=== PATIENT | female | born 1970 | race Caucasian/White ===

== ENCOUNTER 2021-10-08 06:39 | Emergency (ER) | payer SELFPAY ==
[2021-10-08] MEDS ORDERED: NA CHLORIDE 0.9% 1,000 ML ONE (08:03)
[2021-10-08] MEDS ORDERED: ONDANSETRON 4 MG/2 ML VIAL ONE (08:03)
[2021-10-08] MEDS ORDERED: MORPHINE 4 MG/ML SYR ONE (08:03)
[2021-10-08 08:18] LABS: Urine Blood 3+ (Negative); Urine Glucose Negative (Negative); Urine Protein 3+ (Negative); Urine Specific Gravity 1.025 (1.005-1.030); Urine pH 5.5 (5.0-7.0)
[2021-10-08 08:23] LABS: Absolute Lymphocytes (CBC) 1.2 K/uL (0.7-4.9); Hematocrit 26.3 % (36.0-45.0); Lymphocytes % 6.9 % (15.3-44.8); MPV 7.9 fL (7.6-11.3); RBC Red Blood Cell Count 3.89 M/uL (3.86-4.86)
[2021-10-08 08:29] LABS: Urine Bacteria 20-50 /HPF (<20); Urine Mucus LIGHT /HPF (NONE SEEN)
[2021-10-08 08:34] LABS: Urine Specific Gravity/Preg 1.025 (1.005-1.030)
[2021-10-08 08:39] LABS: Albumin 2.8 g/dL (3.4-5.0); Bilirubin Direct 0.2 mg/dL (0-0.2); Bilirubin Total 0.6 mg/dL (0.2-1.0); Potassium 3.6 mmol/L (3.5-5.1); Protein, Total 7.8 g/dL (6.4-8.2)
--- NOTE | 2021-10-08 09:14 | RAD REPORT ---
EXAM DESCRIPTION: CT - Stone Protocol - 10/08/2021 8:33 am CLINICAL HISTORY: Flank pain. LLQ abd pain COMPARISON: No comparisons TECHNIQUE: Axial images were obtained without oral or IV contrast. Lack of contrast limits solid org an and vascular assessment. The [id number] spans the entirety of the system partially obscuring uppermost abdomen and lung bases. Coronal reformatted images were obtained and reviewed. All CT scans are performed using dose optimization technique as appropriate and may include automated exposure control or mA/KV adjustment according to patient size. FINDINGS: The lower lung chambers are clear. Imaged portions of the liver and spleen show no suspicious findings on non-contrast imaging. The panc reas and adrenal glands are normal. No pathologic lymphadenopathy in the abdomen or pelvis. No urinary tract stones or obstructive uropathy. Slight inflammatory changes are present in the right upper quadrant hepatic flexure of the colon. Thi s portion of the colon demonstrates change in luminal diameter as well (image 77/165). There are didier ral mildly prominent adjacent lymph nodes also evident. Direct visualization of this region of the co girish would be recommended. No free fluid, free air or bowel obstruction. 6.3 x 5.3 cm less pelvic mass is present. This appears somewhat contiguous with the uterus a could be an exophytic fibroid. IMPRESSION: No urinary tract stones or obstructive uropathy. Abnormal appearance in the hepatic flexure of the colon as detailed concerning for a colonic mass. Fo llowup colonoscopy is recommended. 6 cm left pelvic mass noted appearing somewhat contiguous with the uterus and may represent an enlarg ed exophytic fibroid. Follow-up pelvic ultrasound or MRI would be helpful for further evaluation.
[2021-10-08 09:41] LABS: SARS-COV-2 RT PCR POSITIVE (NEGATIVE)
--- NOTE | 2021-10-08 10:38 | RAD REPORT ---
EXAM DESCRIPTION: US - Pelvis Complete - 10/08/2021 10:03 am CLINICAL HISTORY: further eval for fibroid;Abd pain Pelvic pain. COMPARISON: Transvaginal Study Probe dated 10/08/2021 FINDINGS: Transabdominal and transvaginal pelvic sonography was performed. The uterus measures 11.6 x 8.6 x 6.5 cm. Endometrium measures 12 mm, normal. Left adnexal mass has a heterogenous appearance measuring 5.0 x 5.0 cm. There appears to be a tissue connection with the uterus and this lesion which would favor exophytic fibroid. Both ovaries are normal in size. Normal Doppler blood flow was demonstrated to both ovaries. No significant pelvic ascites. IMPRESSION: 5 cm left adnexal mass is favored to represent an exophytic fibroid. Recommend follow-up nonemergent MRI female pelvis protocol for confirmation. No ovarian torsion seen.
[2021-10-08 10:47] LABS: Anisocytosis SLIGHT; Blood Morphology Comment NOTED (NOT SEEN); Hypochromasia 1+; Platelet Estimate ADEQ; White Blood Cell Scan OK (OK)
--- NOTE | 2021-10-08 11:49 | ER ---
Nurse's Notes [facility] Name: Cindy Hester Age: 50 yrs Sex: Female : 1970 Arrival Date: 10/08/2021 Time: 06:48 Bed 18 Private MD: Diagnosis: Infectious gastroenteritis and colitis, unspecified;Uterine fibroid;Anemia, unspecified;SARS-associated coronavirus as the cause of diseases classified elsewhere Presentation: 10/08 07:29 Chief complaint: Patient states: Abd pain/pelvic pain since Thursday night at 11 pm. ll1 Still has vaginal bleeding with slimy discharge for about 3 days with foul odor. Coronavirus screen: Vaccine status: Patient reports being unvaccinated. Client denies travel out of the [place] in the last 14 days. diarrhea, nausea, vomiting. Client presents with at least one sign or symptom that may indicate coronavirus-19. Standard/surgical mask placed on the client. Ebola Screen: Patient denies travel to an Ebola-affected area in the 21 days before illness onset. Initial Sepsis Screen: Does the patient meet any 2 criteria? HR > 90 bpm. No. Patient's initial sepsis screen is negative. Does the patient have a suspected source of infection? Yes: Acute abdominal pain. Risk Assessment: Do you want to hurt yourself or someone else? Patient reports no desire to harm self or others. Onset of symptoms was October 07, 2021. 07:29 Method Of Arrival: Wheelchair ll1 07:29 Acuity: KANCHAN 3 ll1 Triage Assessment: 08:43 General: Appears in no apparent distress. Behavior is calm, cooperative. 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 - Social history:: Smoking status: Patient denies any tobacco usage or history of. - Family history:: not pertinent. - Hospitalizations: : No recent hospitalization is reported. Screenin:35 Abuse screen: Denies threats or abuse. Denies injuries from another. Nutritional [place] screening: No deficits noted. Tuberculosis screening: No symptoms or risk factors identified. Fall Risk IV access (20 points). Assessment: 08:35 Pain: Complains of pain in abdomen. GI: Bowel sounds present X 4 quads. Abd is soft Abd [place] is non tender X 4 quads. Vital Signs: 07:29 BP 104 / 68; Pulse 130; Resp 18; Temp 99.56; Pulse Ox 100% ; Weight 114.31 kg; Height 5 ll1 ft. 2 in. (157.48 cm); Pain 10/10; 10:14 BP 131 / 88; Pulse 97; Resp 18; Pulse Ox 99% on R/A; [place] 11:12 BP 122 / 61; Pulse 75; Resp 18; Pulse Ox 98% on R/A; [place] 07:29 Body Mass Index 46.09 (114.31 kg, 157.48 cm) ll1 ED Course: 06:48 Patient arrived in ED. wm 07:29 Arm band placed on. ll1 07:32 Triage completed. ll1 07:48 Olman Pineda MD is Attending Physician. rn 08:33 CT Stone Protocol In Process Unspecified. EDMS 08:35 Patient has correct armband on for positive identification. Bed in low position. [place] 08:35 No provider procedures requiring assistance completed. Inserted saline lock: 20 gauge [place] in right antecubital area, using aseptic technique. 10:03 US Pelvis Complete In Process Unspecified. EDMS 10:03 Transvaginal Study Probe In Process Unspecified. EDMS 11:48 Johnny Hamilton MD is Referral Physician. rn Administered Medications: 08:19 Drug: morphine 4 mg Route: IVP; Site: right antecubital; [place] 08:20 Follow up: Response: No adverse reaction [place] 08:19 Drug: Zofran (Ondansetron) 4 mg Route: IVP; Site: right antecubital; [place] 08:20 Follow up: Response: No adverse reaction [place] 08:19 Drug: NS 0.9% 1000 ml Route: IV; Rate: 1000 ml; Site: right antecubital; [place] Point of Care Testing: Guaiac: 10:28 Stool Guaiac: Negative; Stool Hemoccult Control: Pass; rn Outcome: 11:48 Discharge ordered by . rn 13:27 Patient left the ED. ss Signatures: Dispatcher [employer] EDMS Olman Pineda MD MD rn Smirch, Shelby, RN RN ss Lewis, Lynsay, RN RN [facility] Ashley You Sherrie Barrett RN RN [place]
--- NOTE | 2021-10-08 11:49 | EDPHYS ---
Physician Documentation [facility] Name: Cindy Hester Age: 50 yrs Sex: Female : 1970 Arrival Date: 10/08/2021 Time: 06:48 Bed 18 Private MD: ED Physician Olman Pineda HPI: 10/08 08:10 This 50 yrs old Female presents to ER via Wheelchair with complaints of Abdominal Pain, rn Pelvic Pain. 08:11 The patient presents with abdominal pain in the lower abdomen, in the left lower rn quadrant. Onset: The symptoms/episode began/occurred last night. The symptoms do not radiate. Associated signs and symptoms: Pertinent positives: hematuria, nausea, Pertinent negatives: blood in stools, fever, vaginal discharge. The symptoms are described as intermittent, sharp. Modifying factors: The symptoms are alleviated by nothing, the symptoms are aggravated by movement, touching the area. Severity of pain: At its worst the pain was moderate in the emergency department the pain is unchanged. The patient has experienced similar episodes in the past. The patient has not recently seen a physician. Patient reports lower abdominal pain that began last night, sharp and intermittent, associated with possibly either vaginal bleeding or hematuria patient does not note. States only present when she urinates but cannot tell if it is coming from her vagina. Does have a history of kidney stones. Associated with nausea and vomiting. No fever.. 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 - Social history:: Smoking status: Patient denies any tobacco usage or history of. - Family history:: not pertinent. - Hospitalizations: : No recent hospitalization is reported. ROS: 08:12 Constitutional: Negative for fever, chills, and weight loss, Eyes: Negative for injury, rn pain, redness, and discharge, ENT: Negative for injury, pain, and discharge, Neck: Negative for injury, pain, and swelling, Cardiovascular: Negative for chest pain, palpitations, and edema, Respiratory: Negative for shortness of breath, cough, wheezing, and pleuritic chest pain, Abdomen/GI: + abd pain/nausea/vomiting Back: Negative for injury and pain, : + hematuria MS/Extremity: Negative for injury and deformity, Skin: Negative for injury, rash, and discoloration, Neuro: Negative for headache, weakness, numbness, tingling, and seizure. 08:12 All other systems are negative. Exam: 08:12 Constitutional: This is a well developed, well nourished patient who is awake, alert, rn and in no acute distress. Head/Face: Normocephalic, atraumatic. Eyes: Periorbital areas with no swelling, redness, or edema. Cardiovascular: Tachycardic, regular. No pulse deficits Respiratory: No increased work of breathing, no retractions or nasal flaring. Abdomen/GI: Soft, mild tenderness suprapubic and left lower quadrant without masses or peritoneal signs Skin: Warm, dry MS/ Extremity: Pulses equal, no cyanosis. Neuro: Awake and alert, GCS 15 Vital Signs: 07:29 BP 104 / 68; Pulse 130; Resp 18; Temp 99.56; Pulse Ox 100% ; Weight 114.31 kg; Height 5 ll1 ft. 2 in. (157.48 cm); Pain 10/10; 10:14 BP 131 / 88; Pulse 97; Resp 18; Pulse Ox 99% on R/A; [place] 11:12 BP 122 / 61; Pulse 75; Resp 18; Pulse Ox 98% on R/A; [place] 07:29 Body Mass Index 46.09 (114.31 kg, 157.48 cm) ll1 MDM: 07:48 Patient medically screened. rn 10:28 ED course: Hemoccult negative. Patient states has had chronic anemia and has never rn needed blood transfusion. Does not take iron supplementation. States very heavy periods.. 11:46 Differential diagnosis: appendicitis, diverticulitis, Endometriosis, gastroesophageal rn reflux disease, non-specific abd pain, Peptic Ulcer Disease, Ureterolithiasis, urinary tract infection, colitis, COVID. Data reviewed: vital signs, nurses notes, lab test result(s), radiologic studies, CT scan, and as a result, I will discharge patient. Counseling: I had a detailed discussion with the patient and/or guardian regarding: the historical points, exam findings, and any diagnostic results supporting the discharge/admit diagnosis, lab results, radiology results, the need for outpatient follow up, to return to the emergency department if symptoms worsen or persist or if there are any questions or concerns that arise at home. Response to treatment: the patient's symptoms have markedly improved after treatment, and as a result, I will discharge patient. Special discussion: Based on the patient's Hx, exam, and Dx evaluation, there is no indication for emergent surgery or inpatient Tx. It is understood by the patient/guardian that if the Sx's persist or worsen they need to return immediately for re-evaluation. I discussed with the patient/guardian in detail that at this point there is no indication for admission to the hospital. It is understood, however, that if the symptoms persist or worsen the patient needs to return immediately for re-evaluation. Based on the history and exam findings, there is no indication for further emergent testing or inpatient evaluation. I discussed with the patient/guardian the need to see the fuse coiler for further evaluation of the symptoms. ED course: CT shows irregular focal inflammatory changes in the hepatic flexure. No other acute findings. Patient with anemia but patient with chronic anemia and fibroid on ultrasound. Patient states bleeding seems to be improving. COVID positive. Will discharge home with a GI follow-up after a round of antibiotics for colonoscopy and explained this to patient. 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 Also recommend iron supplementation for now.. 10/08 07:58 Order name: Basic Metabolic Panel; Complete Time: 08:47 rn 10/08 07:58 Order name: CBC with Diff; Complete Time: 11:06 rn 10/08 07:58 Order name: Hepatic Function; Complete Time: 08:47 rn 10/08 07:58 Order name: Lipase; Complete Time: 08:47 rn 10/08 07:58 Order name: Urine Microscopic Only; Complete Time: 08:47 rn 10/08 08:12 Order name: COVID-19/FLU A+B (Document "Date of Onset" if Symptomatic); Complete Time: rn 09:47 10/08 07:58 Order name: CT Stone Protocol; Complete Time: 09:15 rn 10/08 08:18 Order name: Urine --Ancillary (enter results); Complete Time: 08:47 bd 10/08 08:19 Order name: Urine Dipstick-Ancillary; Complete Time: 08:47 EDMS 10/08 08:31 Order name: Urine Culture EDCT 10/08 09:17 Order name: US Pelvis Complete; Complete Time: 11:06 rn 10/08 10:03 Order name: Transvaginal Study Probe EDCT 10/08 10:47 Order name: CBC Smear Scan; Complete Time: 11:06 EDMS 10/08 07:58 Order name: IV Saline Lock; Complete Time: 08:19 rn 10/08 07:58 Order name: Labs collected and sent; Complete Time: 08:20 rn 10/08 07:58 Order name: Urine Dipstick-Ancillary (obtain specimen); Complete Time: 08:19 rn 10/08 07:58 Order name: Urine Test (obtain specimen); Complete Time: 08:19 rn 10/08 07:58 Order name: NPO; Complete Time: 08:19 rn Administered Medications: 08:19 Drug: morphine 4 mg Route: IVP; Site: right antecubital; [place] 08:20 Follow up: Response: No adverse reaction [place] 08:19 Drug: Zofran (Ondansetron) 4 mg Route: IVP; Site: right antecubital; [place] 08:20 Follow up: Response: No adverse reaction [place] 08:19 Drug: NS 0.9% 1000 ml Route: IV; Rate: 1000 ml; Site: right antecubital; [place] Point of Care Testing: Guaiac: 10:28 Stool Guaiac: Negative; Stool Hemoccult Control: Pass; rn Disposition Summary: 10/08/21 11:48 Discharge Ordered Location: Home rn Problem: new rn Symptoms: have improved rn Condition: Stable rn Diagnosis - Infectious gastroenteritis and colitis, unspecified rn - Uterine fibroid rn - Anemia, unspecified rn - SARS-associated coronavirus as the cause of diseases classified elsewhere rn Followup: rn - With: Johnny Hamilton MD - When: As needed - Reason: Recheck today's complaints, Re-evaluation by your physician Discharge Instructions: - Discharge Summary Sheet rn - Colitis rn - COVID-19 rn - 10 Things You Can Do to Manage Your COVID-19 Symptoms at Home - [facility] [place][NOTE 3] rn Forms: - Medication Reconciliation Form rn - Thank You Letter rn - 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 - Prescription Opioid Use rn Prescriptions: - ondansetron 4 mg Oral tablet,disintegrating - place 1 tablet by TRANSLINGUAL route every 8 hours As needed; 15 tablet; rn Refills: 0, Product Selection Permitted - Flagyl 500 mg Oral Tablet - take 1 tablet by ORAL route every 8 hours for 10 days; 30 tablet; Refills: 0, rn Product Selection Permitted - Cipro 500 mg Oral Tablet - take 1 tablet by ORAL route every 12 hours for 10 days; 20 tablet; Refills: 0, rn Product Selection Permitted - Tramadol 50 mg Oral Tablet - take 1 tablet by ORAL route every 8 hours as needed; 12 tablet; Refills: 0, rn Product Selection Permitted Signatures: Dispatcher [employer] EDOlman Cai MD MD rn Lewis, Lynsay, RN RN ll Sherrie Barrett RN RN [place]
[2021-10-08 13:56] VITALS: BP 122/61; O2SAT 98
--- NOTE | 2021-10-09 10:13 | RAD REPORT ---
EXAM DESCRIPTION: US - Transvaginal Study Probe - 10/08/2021 10:03 am CLINICAL HISTORY: Further eval for fibroid;Abd pain Pelvic pain. COMPARISON: Transvaginal Study Probe dated 10/08/2021 FINDINGS: Transabdominal and transvaginal pelvic sonography was performed. The uterus measures 11.6 x 8.6 x 6.5 cm. Endometrium measures 12 mm, normal. Left adnexal mass has a heterogenous appearance measuring 5.0 x 5.0 cm. There appears to be a tissue connection with the uterus and this lesion which would favor exophytic fibroid. Both ovaries are normal in size. Normal Doppler blood flow was demonstrated to both ovaries. No significant pelvic ascites. IMPRESSION: 5 cm left adnexal mass is favored to represent an exophytic fibroid. Recommend follow-up nonemergent MRI female pelvis protocol for confirmation. No ovarian torsion seen.
== END 2021-10-08 13:27 | disposition home or self-care (01) ==
LOC: ER 06:39
DX: U07.1 COVID-19 (principal); A09 Infectious gastroenteritis and colitis, unspecified; D64.9 Anemia, unspecified; D25.9 Leiomyoma of uterus, unspecified; Z88.0 Allergy status to penicillin; Z88.2 Allergy status to sulfonamides; Z91.040 Latex allergy status; Z91.048 Other nonmedicinal substance allergy status
CPT/HCPCS: 0240U; 36415; 74176; 76377; 76830; 76856; 80048; 80076; 81003; 81015; 81025; 83690; 85025; 87086; 87088; 96374; 96375; 99283; J2405; J7030